=== PATIENT | female | born 1955 | race Caucasian/White ===

== ENCOUNTER → 2017-12-23 15:06 | Outpatient (CLI) | payer BC | END | disposition home or self-care (01) | LOC: D.US 15:06 | DX: E04.1 Nontoxic single thyroid nodule (principal) ==

== ENCOUNTER → 2018-01-07 14:03 | Outpatient (CLI) | payer BC | END | disposition home or self-care (01) | LOC: D.US 12-25 13:30 | DX: R60.0 Localized edema (principal) ==